=== PATIENT | male | born 1980 | race African-American/Black ===

== ENCOUNTER 2018-09-30 11:31 | Inpatient (IN) | payer OTHER ==
[2018-09-30 12:46] VITALS: BMI 23.4
--- NOTE | 2018-09-30 14:27 | HP ---
CIWA Score - Admission Criteria [facility]ASAS Guidelines: Admission for Medically Managed Detox: Requires at least one of the followin. CIWA greater than 12 2. Seizures within the past 24 hours 3. Delirium tremens within the past 24 hours 4. Hallucinations within the past 24 hours 5. Acute intervention needed for co occurring medical disorder 6. Acute intervention needed for co occurring psychiatric disorder 7. Severe withdrawal that cannot be handled at a lower level of care (continued vomiting, continued diarrhea, abnormal vital signs) requiring intravenous medication and/or fluids 8. Admission ROS [facility] Chief Complaint: rehab from alcohol Allergies/Adverse Reactions: Allergies Allergy/AdvReac Type Severity Reaction Status Date / Time No Known Drug Allergies Allergy Verified 09/30/18 12:34 pineapple Allergy Verified 09/30/18 12:34 History of Present Illness: Mr. Mcdaniel is a 38yo male with no PMH who presents for rehab from alcohol. He drank 2 pints daily and 5 beers since April. He began drinking at age 14. He denies hx of blackouts or seizures. He was in inpt rehab 3 months ago. He is currently in outpt rehab at [facility] and chose to present here. Pt reports smoking 4-5 joints daily and began using 15 years ago. He also reports use of crystal meth 1-2gm 3x week for a month by inhalation and intermittent MDMA use. Pt reports smoking 1 cigarette daily. 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 Pt denies JO, dizziness, chest pain, SOB, n/v/d, or weakness today. PMH: none meds: none allergies: NKDA, pineapple surgeries: none - Ebola screening Have you traveled outside of the country in the last 21 days: No (N) Have you had contact with anyone from an Ebola affected area: No Do you have a fever: No - Review of Systems Constitutional: No Symptoms Reported EENT: reports: No Symptoms Reported Respiratory: reports: No Symptoms reported Cardiac: reports: No Symptoms Reported GI: reports: No Symptoms Reported : reports: No Symptoms Reported Musculoskeletal: reports: No Symptoms Reported Integumentary: reports: No Symptoms Reported Neuro: reports: No Symptoms reported Endocrine: reports: No Symptoms Reported Hematology: reports: No Symptoms Reported Psychiatric: reports: Judgement Intact, Mood/Affect Appropiate, Orientated x3 Patient History - Patient Medical History Hx Hypertension: Yes (reports "sometimes") - Patient Surgical History Past Surgical History: No - Smoking Cessation Smoking history: Current every day smoker Aproximately how many cigarettes per day: 1 Initiated information on smoking cessation: Yes 'Breaking Loose' booklet given: 09/30/18 - Substances abused Ectasy Substance route: Oral Frequency: 1-2 times per week Amount used: 3 PILLS Age of first use: 24 Date of last use: 09/16/18 Alcohol Substance route: Oral Frequency: Daily Amount used: 2 pints, 5 beers Age of first use: 13 Date of last use: 09/29/18 Methamphetamine Substance route: Smoking Frequency: 3-6 times per week Amount used: 1-2 grams Age of first use: 37 Date of last use: 09/23/18 Other Other (specify): DARIAN Substance route: Oral Frequency: 1-2 times per week Amount used: 3 POINTS Age of first use: 35 Date of last use: 09/23/18 Marijuana/Hashish Substance route: Smoking Frequency: Daily Amount used: 4-5 joints Age of first use: 14 Date of last use: 09/30/18 Family Disease History - Family Disease History Family History: Unremarkable Admission Physical Exam BHS - Vital Signs Vital Signs: Vital Signs - 24 hr 09/30/18 12:32 Temperature 97.1 F L Pulse Rate 68 Respiratory 20 Rate Blood Pressure 138/83 - Physical General Appearance: Yes: No Apparent Distress HEENTM: Yes: Hearing grossly Normal, Normocephalic, RUPERT, Other (moist mucous membranes) Respiratory: Yes: Lungs Clear, No Respiratory Distress Neck: Yes: Within Normal Limits Cardiology: Yes: Regular Rhythm, Regular Rate Abdominal: Yes: Normal Bowel Sounds, Non Tender Back: Yes: Normal Inspection Musculoskeletal: Yes: full range of Motion Extremities: Yes: Normal Range of Motion Neurological: Yes: 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 NML intact, Fully Oriented, Alert, Motor Strength 5/5, Normal Mood/Affect Integumentary: Yes: Within Normal Limits - Diagnostic (1) Intermittent hypertension Current Visit: Yes Status: Acute (2) Methamphetamine use Current Visit: Yes Status: Chronic (3) History of methylenedioxymethamphetamine (MDMA) use Current Visit: Yes Status: Chronic (4) Cannabis use disorder, mild, abuse Current Visit: Yes Status: Chronic (5) Alcohol use disorder Current Visit: Yes Status: Chronic Breathalyzer - Breathalyzer Breathalyzer: 0 Urine Drug Screen - Test Device Lot number: [id number] Expiration date: 07/10/20 - Control Is test valid?: Yes - Results Drug screen NEGATIVE: No Urine drug screen results: THC-Marijuana Inpatient Rehab Admission - Rehab Decision to Admit Inpatient rehab admission?: Yes - Initial Determination Are CD services needed?: Yes Free of communicable disease: Yes Not in need of hospitalization: Yes - Rehab Admission Criteria Previous failed treatment: Yes Poor recovery environment: Yes Comorbidities: Yes Lacks judgement: No Patient is meeting Inpatient Rehab admission criteria:: Yes
[2018-09-30] MEDS ORDERED: hydrOXYzine PAMOATE 25 MG CAPSULE (FP) PO PRN (15:51)
[2018-09-30] MEDS ORDERED: guaiFENesin 200 MG/10 ML 10 ML UNIT-DOSE CUPS PO PRN (15:51)
[2018-09-30] MEDS ORDERED: P-EPHED 60MG/TRIPROLIDI 2.5MG TABLET PO PRN (15:51)
[2018-09-30] MEDS ORDERED: MENTHOL/PHENOL 1 EACH UD MM PRN (15:51)
[2018-09-30] MEDS ORDERED: MAG HYDROX/AL HYDROX/SIMETH 30 ML UNIT-DOSE CUP PO PRN (15:51)
[2018-09-30] MEDS ORDERED: MAGNESIUM CITRATE 300 ML BOTTLE PO PRN (15:51)
[2018-09-30] MEDS ORDERED: MAGNESIUM HYDROX 2400MG/30ML ORAL SUSPENSION 30 ML CUP PO PRN (15:51)
[2018-09-30] MEDS ORDERED: IBUPROFEN 400 MG TABLET (FP) PO PRN (15:51)
[2018-09-30] MEDS ORDERED: LOPERAMIDE HCL 2 MG CAPSULE PO PRN (15:51)
[2018-09-30] MEDS ORDERED: ACETAMINOPHEN 325 MG TABLET (FP) PO PRN (15:51)
--- NOTE | 2018-09-30 16:07 | PN ---
Teaching Attending Note Name of Resident: Shayla Ching ATTENDING PHYSICIAN STATEMENT I saw and evaluated the patient. I reviewed the resident's note and discussed the case with the resident. I agree with the resident's findings and plan as documented. SUBJECTIVE: this 38 years old male with alcohol,marijuana,crystal meth and ecstasy abused , seeking help OBJECTIVE: Vital Signs Temperature 97.1 F L 09/30/18 12:32 Pulse Rate 68 09/30/18 12:32 Respiratory Rate 20 09/30/18 12:32 Blood Pressure 138/83 09/30/18 12:32 O2 Sat by Pulse Oximetry (%) ASSESSMENT AND PLAN: this patient need inpatient rehab from alcohol,marijuana,barbara dust,ecstsy,
[2018-09-30] MEDS ORDERED: MELATONIN 5 MG TABLETS PO PRN (22:00)
[2018-09-30] MEDS: THIAMINE HCL 100 MG TABLET (FP) PO SCH (22:04)
[2018-10-01] MEDS: PRENATAL VITAMINS W/ FOLIC ACID TABLET (FP) PO SCH (10:19)
[2018-10-01] MEDS: NICOTINE 14 MG/24 HOURS TOPICAL PATCH TD SCH (10:23)
--- NOTE | 2018-10-01 11:41 | EKG ---
Test Reason : Blood Pressure : / mmHG Vent. Rate : 056 BPM Atrial Rate : 056 BPM P-R Int : 170 ms QRS Dur : 098 ms QT Int : 468 ms P-R-T Axes : 033 055 -01 degrees QTc Int : 451 ms SINUS BRADYCARDIA WITH SINUS ARRHYTHMIA OTHERWISE NORMAL ECG NO PREVIOUS ECGS AVAILABLE Confirmed by JAMES GIRALDO, VANESA ([id number]) on 10/01/2018 11:41:22 AM Referred By: Confirmed By:VANESA RAMIREZ MD
[2018-10-01 12:31] LABS: ALBUMIN 4.2 g/dl (3.4-5.0); BILIRUBIN,TOTAL 0.8 mg/dL (0.2-1); BLOOD UREA NITROGEN 15.9 mg/dL (7-18); CALCIUM 9.8 mg/dL (8.5-10.1); POTASSIUM 4.2 mmol/L (3.5-5.1); TOT PROT 7.5 g/dl (6.4-8.2)
[2018-10-01 13:22] LABS: EPI CELLS 9.4 /HPF (0-5/HPF); HYALINE CASTS 35 /lpf (0-8); URINE APPEARANCE CLEAR; URINE BACTERIA 17.6 /hpf (NEGATIVE); URINE BILIRUBIN NEGATIVE (NEGATIVE); URINE COLOR YELLOW; URINE GLUCOSE (UA) NEGATIVE (NEGATIVE); URINE KETONE NEGATIVE (NEGATIVE); URINE LEUK ESTERASE 1+ (NEGATIVE); URINE NITRITE NEGATIVE (NEGATIVE); URINE PROTEIN NEGATIVE (NEGATIVE); URINE RBC 1 /hpf (0-4); URINE WBC 12 /hpf (0-5)
[2018-10-01 13:27] LABS: HEMATOCRIT 45.5 % (35.4-49); HEMOGLOBIN 14.4 GM/dL (11.7-16.9); MCH 24.2 pg (25.7-33.7); MCHC 31.7 g/dl (32.0-35.9); MEAN CELL VOLUME 76.2 fl (80-96); MEAN PLT VOLUME 9.3 fl (7.5-11.1); PLATELET COUNT 323 K/MM3 (134-434); RBC 5.97 M/mm3 (4.00-5.60); RDW 15.2 % (11.9-15.9)
[2018-10-01] MEDS: THIAMINE HCL 100 MG TABLET (FP) PO SCH (21:29)
[2018-10-01] MEDS: TOLNAFTATE 1% CREAM 15 GM TUBE TP SCH (22:11)
[2018-10-02] MEDS: NICOTINE 14 MG/24 HOURS TOPICAL PATCH TD SCH (10:19)
[2018-10-02] MEDS: PRENATAL VITAMINS W/ FOLIC ACID TABLET (FP) PO SCH (10:19)
[2018-10-02] MEDS: TOLNAFTATE 1% CREAM 15 GM TUBE TP SCH ×2 (10:20→21:37)
[2018-10-02] MEDS: MELATONIN 5 MG TABLETS PO PRN (21:36)
[2018-10-02] MEDS: THIAMINE HCL 100 MG TABLET (FP) PO SCH (21:36)
[2018-10-03] MEDS: PRENATAL VITAMINS W/ FOLIC ACID TABLET (FP) PO SCH (10:41)
[2018-10-03] MEDS: TOLNAFTATE 1% CREAM 15 GM TUBE TP SCH ×2 (10:41→21:42)
[2018-10-03] MEDS: NICOTINE 14 MG/24 HOURS TOPICAL PATCH TD SCH (10:41)
[2018-10-03] MEDS: NICOTINE POLACRILEX 2 MG GUM BUC PRN (10:42)
[2018-10-03] MEDS: THIAMINE HCL 100 MG TABLET (FP) PO SCH (21:42)
[2018-10-03] MEDS: MELATONIN 5 MG TABLETS PO PRN (21:42)
[2018-10-04] MEDS: NICOTINE 14 MG/24 HOURS TOPICAL PATCH TD SCH (09:44)
[2018-10-04] MEDS: PRENATAL VITAMINS W/ FOLIC ACID TABLET (FP) PO SCH (09:44)
[2018-10-04] MEDS: TOLNAFTATE 1% CREAM 15 GM TUBE TP SCH ×2 (09:45→22:47)
[2018-10-04] MEDS: THIAMINE HCL 100 MG TABLET (FP) PO SCH (21:43)
[2018-10-04] MEDS: MELATONIN 5 MG TABLETS PO PRN (21:44)
[2018-10-05] MEDS ORDERED: PT OWN MED DRAWER 7, Y5N ONE (09:37)
[2018-10-05] MEDS: TOLNAFTATE 1% CREAM 15 GM TUBE TP SCH ×2 (10:08→21:27)
[2018-10-05] MEDS: PRENATAL VITAMINS W/ FOLIC ACID TABLET (FP) PO SCH (10:08)
[2018-10-05] MEDS: NICOTINE 14 MG/24 HOURS TOPICAL PATCH TD SCH (10:08)
[2018-10-05] MEDS: THIAMINE HCL 100 MG TABLET (FP) PO SCH (21:26)
[2018-10-05] MEDS: MELATONIN 5 MG TABLETS PO PRN (21:26)
[2018-10-06] MEDS: TOLNAFTATE 1% CREAM 15 GM TUBE TP SCH ×2 (10:12→21:26)
[2018-10-06] MEDS: PRENATAL VITAMINS W/ FOLIC ACID TABLET (FP) PO SCH (10:12)
[2018-10-06] MEDS: NICOTINE 14 MG/24 HOURS TOPICAL PATCH TD SCH (10:12)
[2018-10-06] MEDS: NICOTINE POLACRILEX 2 MG GUM BUC PRN ×2 (10:14→21:27)
[2018-10-06] MEDS: THIAMINE HCL 100 MG TABLET (FP) PO SCH (21:26)
[2018-10-06] MEDS: MELATONIN 5 MG TABLETS PO PRN (21:27)
[2018-10-07] MEDS: PRENATAL VITAMINS W/ FOLIC ACID TABLET (FP) PO SCH (10:07)
[2018-10-07] MEDS: NICOTINE 14 MG/24 HOURS TOPICAL PATCH TD SCH (10:07)
[2018-10-07] MEDS: TOLNAFTATE 1% CREAM 15 GM TUBE TP SCH ×2 (10:07→21:18)
[2018-10-07] MEDS: NICOTINE POLACRILEX 2 MG GUM BUC PRN ×2 (10:08→21:17)
[2018-10-07] MEDS: MELATONIN 5 MG TABLETS PO PRN (21:18)
[2018-10-07] MEDS: THIAMINE HCL 100 MG TABLET (FP) PO SCH (21:18)
[2018-10-08] MEDS: TOLNAFTATE 1% CREAM 15 GM TUBE TP SCH ×2 (10:08→22:05)
[2018-10-08] MEDS: NICOTINE POLACRILEX 2 MG GUM BUC PRN ×2 (10:08→21:38)
[2018-10-08] MEDS: PRENATAL VITAMINS W/ FOLIC ACID TABLET (FP) PO SCH (10:08)
[2018-10-08] MEDS: NICOTINE 14 MG/24 HOURS TOPICAL PATCH TD SCH (10:08)
[2018-10-08] MEDS: MELATONIN 5 MG TABLETS PO PRN (21:37)
[2018-10-08] MEDS: THIAMINE HCL 100 MG TABLET (FP) PO SCH (21:37)
[2018-10-09] MEDS ORDERED: PT OWN MED DRAWER 7, Y5N ONE (09:32)
[2018-10-09] MEDS: PRENATAL VITAMINS W/ FOLIC ACID TABLET (FP) PO SCH (09:35)
[2018-10-09] MEDS: NICOTINE 14 MG/24 HOURS TOPICAL PATCH TD SCH (09:35)
[2018-10-09] MEDS: NICOTINE POLACRILEX 2 MG GUM BUC PRN (09:36)
[2018-10-09] MEDS: TOLNAFTATE 1% CREAM 15 GM TUBE TP SCH ×2 (09:36→21:20)
--- NOTE | 2018-10-09 09:49 | PN ---
[facility] Progress Note Note: PATIENT C/O RASH/IRRITATION TO LOWER ABDOMINAL AND GROIN AREA DUE TO SHAVING. PATIENT DENIES ANY OPEN AREAS AND SURROUNDING REDNESS. Laboratory Tests 10/01/18 10/01/18 10/01/18 08:25 08:25 08:25 WBC 4.0 RBC 5.97 H Hgb 14.4 Hct 45.5 MCV 76.2 L MCH 24.2 L MCHC 31.7 L RDW 15.2 Plt Count 323 MPV 9.3 Sodium 142 Potassium 4.2 Chloride 106 Carbon Dioxide 27 Anion Gap 9 BUN 15.9 Creatinine 1.0 Est GFR (CKD-EPI)AfAm 111.73 Est GFR (CKD-EPI)NonAf 96.40 Random Glucose 87 Calcium 9.8 Total Bilirubin 0.8 AST 17 ALT 26 Alkaline Phosphatase 76 Total Protein 7.5 Albumin 4.2 Urine Color Urine Appearance Urine pH Ur Specific [place] Urine Protein Urine Glucose (UA) Urine Ketones Urine Blood Urine Nitrite Urine Bilirubin Urine Urobilinogen Ur Leukocyte Esterase Urine WBC (Auto) Urine RBC (Auto) Urine Casts (Auto) U Epithel Cells (Auto) U Sm Round Cell (Auto) Urine Bacteria (Auto) RPR Titer Nonreactive TB (QFT) Incubation TB Test (QFT) Nil TB Test (QFT) Mitogen TB Test (QFT) Antigen TB Test (QFT) TB Positive Criteria 10/01/18 10/01/18 08:25 09:00 WBC RBC Hgb Hct MCV MCH MCHC RDW Plt Count MPV Sodium Potassium Chloride Carbon Dioxide Anion Gap BUN Creatinine Est GFR (CKD-EPI)AfAm Est GFR (CKD-EPI)NonAf Random Glucose Calcium Total Bilirubin AST ALT Alkaline Phosphatase Total Protein Albumin Urine Color Yellow Urine Appearance Clear Urine pH 6.0 Ur Specific [place] 1.031 Urine Protein Negative Urine Glucose (UA) Negative Urine Ketones Negative Urine Blood Negative Urine Nitrite Negative Urine Bilirubin Negative Urine Urobilinogen 1.0 Ur Leukocyte Esterase 1+ H Urine WBC (Auto) 12 Urine RBC (Auto) 1 Urine Casts (Auto) 35 U Epithel Cells (Auto) 9.4 U Sm Round Cell (Auto) Rbc Urine Bacteria (Auto) 17.6 RPR Titer TB (QFT) Incubation TB Test (QFT) Nil 0.11 TB Test (QFT) Mitogen >10.00 TB Test (QFT) Antigen 0.11 TB Test (QFT) Negative TB Positive Criteria Vital Signs (72 hours) 10/07/18 10/08/18 10/08/18 06:37 00:30 03:30 Temperature 97.8 F Pulse Rate 72 Respiratory 18 18 18 Rate Blood Pressure 138/64 10/08/18 10/08/18 10/09/18 06:30 06:49 00:30 Temperature 97.8 F Pulse Rate 66 Respiratory 18 18 20 Rate Blood Pressure 113/73 10/09/18 10/09/18 03:30 06:56 Temperature 97.6 F Pulse Rate 50 L Respiratory 18 18 Rate Blood Pressure 132/78 A/P: GROIN RASH DUE TO SHAVING WILL ORDER BACITRACIN TO AA BID MONITOR CLINICALLY
[2018-10-09] MEDS: BACITRACIN 15 GM TUBE TOPICAL OINTMENT TP SCH ×2 (10:28→21:20)
[2018-10-09] MEDS: THIAMINE HCL 100 MG TABLET (FP) PO SCH (21:20)
[2018-10-09] MEDS: MELATONIN 5 MG TABLETS PO PRN (21:20)
[2018-10-10] MEDS: BACITRACIN 15 GM TUBE TOPICAL OINTMENT TP SCH ×2 (10:08→21:41)
[2018-10-10] MEDS: PRENATAL VITAMINS W/ FOLIC ACID TABLET (FP) PO SCH (10:08)
[2018-10-10] MEDS: NICOTINE 14 MG/24 HOURS TOPICAL PATCH TD SCH (10:08)
[2018-10-10] MEDS: TOLNAFTATE 1% CREAM 15 GM TUBE TP SCH ×2 (10:08→21:41)
--- NOTE | 2018-10-10 11:52 | CONSULT ---
[facility] Psychiatric Consult - Data Date of interview: 10/10/18 Admission source: [facility] Identifying data: First visit to [facility] and direct admission to [address] for this 38 y/o AA male, mandated by his mail officer for rehabiltative care to address substance use disorders (MDMA, cannabis, alcohol, phencyclidine) co-morbid with MDD + Anxiety Disorder. Interviewed at [facility]. Patient is single, a father of six, homeless, unemployed and receiving food stamps. Substance Abuse History: Discussed in this interview. Mr Mcdaniel confirms this segment of current [facility] report on his substance abuse profile as accurate : Smoking history: Current every day smoker. Aproximately how many cigarettes per day: 1. Initiated information on smoking cessation: Yes. 'Breaking Loose' booklet given: 09/30/18. - Substances abused. Ectasy. Substance route: Oral. Frequency: 1-2 times per week. Amount used: 3 PILLS. Age of first use: 24. Date of last use: 09/16/18. Alcohol. Substance route: Oral. Frequency : Daily. Amount used: 2 pints, 5 beers. Age of first use: 13. Date of last use: 09/29/18. Methamphetamine. Substance route: Smoking. Frequency: 3-6 times per week. Amount used: 1-2 grams. Age of first use: 37. Date of last use: 09/23/18. Other. Other (specify): DARIAN. Substance route: Oral. Frequency: 1-2 times per week. Amount used: 3 POINTS. Age of first use: 35. Date of last use: 09/23/18. Marijuana/Hashish. Substance route: Smoking. Frequency: Daily. Amount used: 4-5 joints. Age of first use: 14. Date of last use: 09/30/18 Medical History: Medical profile is remarkable for hypertension. Psychiatric History: No reported history of psychiatric hospitalizations. Patient states that he was diagnosed at [facility] with MDD ( while in detoxification treatment) in 2018. Mr Mcdaniel did not follow with referral for psychiatric OPD care as recommended. Not on psychotropic medications. He is, however, followed at [facility]. Patient admits to being impulsive (intermittent explosive outbursts : punching prater when angry) but he denies prior history of suicide attempts. Physical/Sexual Abuse/Trauma History: Patient denies history of abuse. Reports mood dysregulation from exposure to life adverse events ( of his daughter, multiple deaths in the family, serious illness of friends, strains in interpersonal relationships, homelessness, history of incarceration, being on parole for next five years, lack of vocational skills, chronic unemployment, financial difficulties, chronic additions). Additional Comment: Urine drug screen results: THC-Marijuana. Noted. Mental Status Exam - Mental Status Exam Alert and Oriented to: Time, Place, Person Cognitive Function: Good Patient Appearance: Well Groomed (tattoos on neck, chest, upper extremities) Mood: Nervous, Anxious (dysphoric) Affect: Mood Congruent, Constricted Patient Behavior: Appropriate, Cooperative Speech Pattern: Clear Voice Loudness: Normal Thought Process: Goal Oriented Thought Disorder: Not Present Hallucinations: Denies Suicidal Ideation: Denies Homicidal Ideation: Denies Insight/Judgement: Poor Sleep: Poorly, Difficulty falling asleep Appetite: Good Muscle strength/Tone: Normal Gait/Station: Normal Psychiatric Findings - Problem List ([place] 1, 2,3) (1) Alcohol use disorder Current Visit: Yes Status: Chronic (2) Cannabis use disorder, mild, abuse Current Visit: Yes Status: Chronic (3) History of methylenedioxymethamphetamine (MDMA) use Current Visit: Yes Status: Chronic (4) Substance induced mood disorder Current Visit: Yes Status: Chronic (5) Insomnia Current Visit: Yes Status: Chronic - Initial Treatment Plan Initial Treatment Plan: Psychoeducation. Sleep hygiene. Support. Motivational counseling. AA meetings. Groups. Patient remains ambivalent about treatment with antidepressant (SSRI) medications but he agrees to take seroquel 50 mg po hs (and escalate dose later, if good tolerability + response). Side effects/ benefits discussed with patient. Mr Mcdaniel gave his consent (verbal) to MD. Man.
[2018-10-10] MEDS: THIAMINE HCL 100 MG TABLET (FP) PO SCH (21:41)
[2018-10-10] MEDS: QUEtiapine FUMARATE 50 MG TABLET PO SCH (21:41)
[2018-10-10] MEDS: NICOTINE POLACRILEX 2 MG GUM BUC PRN (21:44)
[2018-10-11] MEDS: PRENATAL VITAMINS W/ FOLIC ACID TABLET (FP) PO SCH (10:28)
[2018-10-11] MEDS: BACITRACIN 15 GM TUBE TOPICAL OINTMENT TP SCH ×2 (10:29→21:28)
[2018-10-11] MEDS: NICOTINE 14 MG/24 HOURS TOPICAL PATCH TD SCH (10:29)
[2018-10-11] MEDS: TOLNAFTATE 1% CREAM 15 GM TUBE TP SCH ×2 (10:29→21:28)
[2018-10-11] MEDS: NICOTINE POLACRILEX 2 MG GUM BUC PRN (10:29)
[2018-10-11] MEDS: THIAMINE HCL 100 MG TABLET (FP) PO SCH (21:27)
[2018-10-11] MEDS: QUEtiapine FUMARATE 50 MG TABLET PO SCH (21:27)
[2018-10-12] MEDS: PRENATAL VITAMINS W/ FOLIC ACID TABLET (FP) PO SCH (10:28)
[2018-10-12] MEDS: TOLNAFTATE 1% CREAM 15 GM TUBE TP SCH ×2 (10:29→21:19)
[2018-10-12] MEDS: BACITRACIN 15 GM TUBE TOPICAL OINTMENT TP SCH ×2 (10:29→21:19)
[2018-10-12] MEDS: NICOTINE 14 MG/24 HOURS TOPICAL PATCH TD SCH (10:29)
[2018-10-12] MEDS: NICOTINE POLACRILEX 2 MG GUM BUC PRN ×2 (10:29→21:19)
[2018-10-12] MEDS: THIAMINE HCL 100 MG TABLET (FP) PO SCH (21:19)
[2018-10-12] MEDS: QUEtiapine FUMARATE 50 MG TABLET PO SCH (21:19)
[2018-10-13] MEDS: PRENATAL VITAMINS W/ FOLIC ACID TABLET (FP) PO SCH (09:52)
[2018-10-13] MEDS: NICOTINE 14 MG/24 HOURS TOPICAL PATCH TD SCH (09:52)
[2018-10-13] MEDS: BACITRACIN 15 GM TUBE TOPICAL OINTMENT TP SCH ×2 (09:52→21:28)
[2018-10-13] MEDS: NICOTINE POLACRILEX 2 MG GUM BUC PRN ×2 (09:52→21:28)
[2018-10-13] MEDS: TOLNAFTATE 1% CREAM 15 GM TUBE TP SCH ×2 (09:52→21:44)
[2018-10-13] MEDS: THIAMINE HCL 100 MG TABLET (FP) PO SCH (21:27)
[2018-10-13] MEDS: MELATONIN 5 MG TABLETS PO PRN (21:28)
[2018-10-13] MEDS: QUEtiapine FUMARATE 50 MG TABLET PO SCH (21:28)
[2018-10-14] MEDS: PRENATAL VITAMINS W/ FOLIC ACID TABLET (FP) PO SCH (10:15)
[2018-10-14] MEDS: BACITRACIN 15 GM TUBE TOPICAL OINTMENT TP SCH ×2 (10:16→21:36)
[2018-10-14] MEDS: NICOTINE POLACRILEX 2 MG GUM BUC PRN (10:17)
[2018-10-14] MEDS: TOLNAFTATE 1% CREAM 15 GM TUBE TP SCH ×2 (10:18→21:36)
[2018-10-14] MEDS: NICOTINE 14 MG/24 HOURS TOPICAL PATCH TD SCH (10:18)
[2018-10-14] MEDS ORDERED: PT OWN MED DRAWER 7, Y5N ONE (10:18)
[2018-10-14] MEDS: THIAMINE HCL 100 MG TABLET (FP) PO SCH (21:35)
[2018-10-14] MEDS: MELATONIN 5 MG TABLETS PO PRN (21:35)
[2018-10-14] MEDS: QUEtiapine FUMARATE 50 MG TABLET PO SCH (21:35)
[2018-10-15] MEDS: TOLNAFTATE 1% CREAM 15 GM TUBE TP SCH ×2 (10:14→21:10)
[2018-10-15] MEDS: PRENATAL VITAMINS W/ FOLIC ACID TABLET (FP) PO SCH (10:14)
[2018-10-15] MEDS: NICOTINE 14 MG/24 HOURS TOPICAL PATCH TD SCH (10:14)
[2018-10-15] MEDS: BACITRACIN 15 GM TUBE TOPICAL OINTMENT TP SCH ×2 (10:14→21:10)
[2018-10-15] MEDS ORDERED: PT OWN MED DRAWER 7, Y5N ONE (20:28)
[2018-10-15] MEDS: QUEtiapine FUMARATE 50 MG TABLET PO SCH (21:10)
[2018-10-15] MEDS: THIAMINE HCL 100 MG TABLET (FP) PO SCH (21:10)
[2018-10-16] MEDS: PRENATAL VITAMINS W/ FOLIC ACID TABLET (FP) PO SCH (10:08)
[2018-10-16] MEDS: NICOTINE 14 MG/24 HOURS TOPICAL PATCH TD SCH (10:08)
[2018-10-16] MEDS ORDERED: PT OWN MED DRAWER 7, Y5N ONE (10:09)
[2018-10-16] MEDS: BACITRACIN 15 GM TUBE TOPICAL OINTMENT TP SCH ×2 (10:09→21:53)
[2018-10-16] MEDS: TOLNAFTATE 1% CREAM 15 GM TUBE TP SCH ×2 (10:09→21:53)
[2018-10-16] MEDS: NICOTINE POLACRILEX 2 MG GUM BUC PRN (10:10)
[2018-10-16] MEDS: QUEtiapine FUMARATE 50 MG TABLET PO SCH (21:53)
[2018-10-16] MEDS: THIAMINE HCL 100 MG TABLET (FP) PO SCH (21:53)
[2018-10-16] MEDS: MELATONIN 5 MG TABLETS PO PRN (21:54)
[2018-10-17] MEDS: TOLNAFTATE 1% CREAM 15 GM TUBE TP SCH ×2 (10:08→21:33)
[2018-10-17] MEDS: BACITRACIN 15 GM TUBE TOPICAL OINTMENT TP SCH ×2 (10:08→21:33)
[2018-10-17] MEDS: PRENATAL VITAMINS W/ FOLIC ACID TABLET (FP) PO SCH (10:08)
[2018-10-17] MEDS: NICOTINE POLACRILEX 2 MG GUM BUC PRN (10:09)
[2018-10-17] MEDS: NICOTINE 14 MG/24 HOURS TOPICAL PATCH TD SCH (10:09)
[2018-10-17] MEDS: MELATONIN 5 MG TABLETS PO PRN (21:33)
[2018-10-17] MEDS: QUEtiapine FUMARATE 50 MG TABLET PO SCH (21:33)
[2018-10-17] MEDS: THIAMINE HCL 100 MG TABLET (FP) PO SCH (21:33)
[2018-10-18] MEDS: PRENATAL VITAMINS W/ FOLIC ACID TABLET (FP) PO SCH (09:35)
[2018-10-18] MEDS: NICOTINE 14 MG/24 HOURS TOPICAL PATCH TD SCH (09:35)
[2018-10-18] MEDS: TOLNAFTATE 1% CREAM 15 GM TUBE TP SCH ×2 (09:35→21:10)
[2018-10-18] MEDS: BACITRACIN 15 GM TUBE TOPICAL OINTMENT TP SCH ×2 (09:35→21:10)
[2018-10-18] MEDS: QUEtiapine FUMARATE 50 MG TABLET PO SCH (21:10)
[2018-10-18] MEDS: MELATONIN 5 MG TABLETS PO PRN (21:10)
[2018-10-18] MEDS: THIAMINE HCL 100 MG TABLET (FP) PO SCH (21:10)
[2018-10-19] MEDS: PRENATAL VITAMINS W/ FOLIC ACID TABLET (FP) PO SCH (10:22)
[2018-10-19] MEDS: BACITRACIN 15 GM TUBE TOPICAL OINTMENT TP SCH ×2 (10:23→21:18)
[2018-10-19] MEDS: TOLNAFTATE 1% CREAM 15 GM TUBE TP SCH ×2 (10:23→22:05)
[2018-10-19] MEDS: NICOTINE POLACRILEX 2 MG GUM BUC PRN (10:23)
[2018-10-19] MEDS: NICOTINE 14 MG/24 HOURS TOPICAL PATCH TD SCH (10:23)
[2018-10-19] MEDS ORDERED: PT OWN MED DRAWER 7, Y5N ONE (19:14)
[2018-10-19] MEDS: QUEtiapine FUMARATE 50 MG TABLET PO SCH (21:19)
[2018-10-19] MEDS: THIAMINE HCL 100 MG TABLET (FP) PO SCH (21:19)
[2018-10-19] MEDS: MELATONIN 5 MG TABLETS PO PRN (21:19)
[2018-10-20] MEDS: PRENATAL VITAMINS W/ FOLIC ACID TABLET (FP) PO SCH (10:23)
[2018-10-20] MEDS: BACITRACIN 15 GM TUBE TOPICAL OINTMENT TP SCH ×2 (10:23→21:19)
[2018-10-20] MEDS: NICOTINE 14 MG/24 HOURS TOPICAL PATCH TD SCH (10:24)
[2018-10-20] MEDS: NICOTINE POLACRILEX 2 MG GUM BUC PRN (10:25)
[2018-10-20] MEDS: TOLNAFTATE 1% CREAM 15 GM TUBE TP SCH ×2 (10:42→22:33)
[2018-10-20] MEDS: THIAMINE HCL 100 MG TABLET (FP) PO SCH (21:18)
[2018-10-20] MEDS: MELATONIN 5 MG TABLETS PO PRN (21:19)
[2018-10-20] MEDS: QUEtiapine FUMARATE 50 MG TABLET PO SCH (21:19)
[2018-10-21] MEDS ORDERED: PT OWN MED DRAWER 7, Y5N ONE (08:42)
[2018-10-21] MEDS ORDERED: NICOTINE POLACRILEX 4 MG GUM BUC ONE (08:42)
[2018-10-21] MEDS: NICOTINE 14 MG/24 HOURS TOPICAL PATCH TD SCH (10:20)
[2018-10-21] MEDS: PRENATAL VITAMINS W/ FOLIC ACID TABLET (FP) PO SCH (10:20)
[2018-10-21] MEDS: BACITRACIN 15 GM TUBE TOPICAL OINTMENT TP SCH ×2 (10:20→21:50)
[2018-10-21] MEDS: TOLNAFTATE 1% CREAM 15 GM TUBE TP SCH ×2 (10:21→21:56)
[2018-10-21] MEDS: QUEtiapine FUMARATE 50 MG TABLET PO SCH (21:50)
[2018-10-21] MEDS: THIAMINE HCL 100 MG TABLET (FP) PO SCH (21:50)
[2018-10-21] MEDS: MELATONIN 5 MG TABLETS PO PRN (21:50)
[2018-10-21] MEDS: CHLORHEXIDINE GLUCONATE 118 ML MOUTHWASH MM SCH (21:50)
[2018-10-22] MEDS: PRENATAL VITAMINS W/ FOLIC ACID TABLET (FP) PO SCH (10:15)
[2018-10-22] MEDS: NICOTINE 14 MG/24 HOURS TOPICAL PATCH TD SCH (10:15)
[2018-10-22] MEDS: BACITRACIN 15 GM TUBE TOPICAL OINTMENT TP SCH ×2 (10:16→21:16)
[2018-10-22] MEDS: TOLNAFTATE 1% CREAM 15 GM TUBE TP SCH ×2 (10:16→21:41)
[2018-10-22] MEDS: CHLORHEXIDINE GLUCONATE 118 ML MOUTHWASH MM SCH ×2 (10:16→21:17)
[2018-10-22] MEDS: NICOTINE POLACRILEX 2 MG GUM BUC PRN (10:17)
[2018-10-22] MEDS ORDERED: PT OWN MED DRAWER 7, Y5N ONE ×2 (10:41→21:17)
[2018-10-22] MEDS: QUEtiapine FUMARATE 50 MG TABLET PO SCH (21:16)
[2018-10-22] MEDS: THIAMINE HCL 100 MG TABLET (FP) PO SCH (21:17)
[2018-10-22] MEDS: MELATONIN 5 MG TABLETS PO PRN (21:17)
[2018-10-23] MEDS ORDERED: PT OWN MED DRAWER 7, Y5N ONE ×2 (08:18→08:31)
[2018-10-23] MEDS ORDERED: NICOTINE POLACRILEX 2 MG GUM BUC ONE (08:31)
[2018-10-23] MEDS: CHLORHEXIDINE GLUCONATE 118 ML MOUTHWASH MM SCH ×2 (10:23→21:40)
[2018-10-23] MEDS: PRENATAL VITAMINS W/ FOLIC ACID TABLET (FP) PO SCH (10:23)
[2018-10-23] MEDS: NICOTINE POLACRILEX 2 MG GUM BUC PRN (10:24)
[2018-10-23] MEDS: TOLNAFTATE 1% CREAM 15 GM TUBE TP SCH ×2 (10:25→21:40)
[2018-10-23] MEDS: BACITRACIN 15 GM TUBE TOPICAL OINTMENT TP SCH ×2 (10:26→21:40)
[2018-10-23] MEDS: NICOTINE 14 MG/24 HOURS TOPICAL PATCH TD SCH (10:26)
[2018-10-23] MEDS: MELATONIN 5 MG TABLETS PO PRN (21:39)
[2018-10-23] MEDS: QUEtiapine FUMARATE 50 MG TABLET PO SCH (21:40)
[2018-10-23] MEDS: THIAMINE HCL 100 MG TABLET (FP) PO SCH (21:40)
[2018-10-24 06:25] VITALS: TEMP 97.9
[2018-10-24] MEDS: NICOTINE POLACRILEX 2 MG GUM BUC PRN (09:52)
[2018-10-24] MEDS: NICOTINE 14 MG/24 HOURS TOPICAL PATCH TD SCH (09:52)
[2018-10-24] MEDS: CHLORHEXIDINE GLUCONATE 118 ML MOUTHWASH MM SCH ×2 (09:52→21:09)
[2018-10-24] MEDS: PRENATAL VITAMINS W/ FOLIC ACID TABLET (FP) PO SCH (09:52)
[2018-10-24] MEDS: BACITRACIN 15 GM TUBE TOPICAL OINTMENT TP SCH ×2 (10:35→21:09)
[2018-10-24] MEDS: TOLNAFTATE 1% CREAM 15 GM TUBE TP SCH ×2 (10:35→21:10)
[2018-10-24] MEDS: THIAMINE HCL 100 MG TABLET (FP) PO SCH (21:09)
[2018-10-24] MEDS: MELATONIN 5 MG TABLETS PO PRN (21:09)
[2018-10-24] MEDS: QUEtiapine FUMARATE 50 MG TABLET PO SCH (21:09)
[2018-10-25] MEDS: NICOTINE 14 MG/24 HOURS TOPICAL PATCH TD SCH (10:16)
[2018-10-25] MEDS: PRENATAL VITAMINS W/ FOLIC ACID TABLET (FP) PO SCH (10:16)
[2018-10-25] MEDS: CHLORHEXIDINE GLUCONATE 118 ML MOUTHWASH MM SCH ×2 (10:16→21:42)
[2018-10-25] MEDS: BACITRACIN 15 GM TUBE TOPICAL OINTMENT TP SCH ×2 (10:16→21:42)
[2018-10-25] MEDS: NICOTINE POLACRILEX 2 MG GUM BUC PRN (10:17)
[2018-10-25] MEDS: TOLNAFTATE 1% CREAM 15 GM TUBE TP SCH ×2 (10:18→21:55)
[2018-10-25] MEDS: THIAMINE HCL 100 MG TABLET (FP) PO SCH (21:42)
[2018-10-25] MEDS: MELATONIN 5 MG TABLETS PO PRN (21:42)
[2018-10-25] MEDS: QUEtiapine FUMARATE 50 MG TABLET PO SCH (21:55)
[2018-10-26 06:57] VITALS: BP 133/72; PULSE 55
[2018-10-26] MEDS: NICOTINE 14 MG/24 HOURS TOPICAL PATCH TD SCH (09:50)
[2018-10-26] MEDS: BACITRACIN 15 GM TUBE TOPICAL OINTMENT TP SCH ×2 (09:50→21:35)
[2018-10-26] MEDS: PRENATAL VITAMINS W/ FOLIC ACID TABLET (FP) PO SCH (09:50)
[2018-10-26] MEDS: CHLORHEXIDINE GLUCONATE 118 ML MOUTHWASH MM SCH ×2 (09:50→21:35)
[2018-10-26] MEDS: TOLNAFTATE 1% CREAM 15 GM TUBE TP SCH ×2 (10:05→21:41)
[2018-10-26] MEDS: MELATONIN 5 MG TABLETS PO PRN (21:35)
[2018-10-26] MEDS: THIAMINE HCL 100 MG TABLET (FP) PO SCH (21:35)
[2018-10-26] MEDS: QUEtiapine FUMARATE 50 MG TABLET PO SCH (21:35)
[2018-10-27] MEDS ORDERED: PT OWN MED DRAWER 7, Y5N ONE (08:33)
[2018-10-27] MEDS: PRENATAL VITAMINS W/ FOLIC ACID TABLET (FP) PO SCH (12:08)
[2018-10-27] MEDS: CHLORHEXIDINE GLUCONATE 118 ML MOUTHWASH MM SCH ×2 (12:09→21:53)
[2018-10-27] MEDS: NICOTINE 14 MG/24 HOURS TOPICAL PATCH TD SCH (12:09)
[2018-10-27] MEDS: BACITRACIN 15 GM TUBE TOPICAL OINTMENT TP SCH ×2 (12:09→21:53)
[2018-10-27] MEDS: TOLNAFTATE 1% CREAM 15 GM TUBE TP SCH ×2 (12:09→21:53)
[2018-10-27] MEDS: NICOTINE POLACRILEX 2 MG GUM BUC PRN (12:11)
--- NOTE | 2018-10-27 15:02 | PN ---
[facility] Progress Note Note: Patient is scheduled for discharge tomorrow. Script for 30 days supply of Seroquel 50 mg/hs will be electronically transmitted to [facility] at [address] [place], [place] [id number]
[2018-10-27] MEDS: THIAMINE HCL 100 MG TABLET (FP) PO SCH (21:53)
[2018-10-27] MEDS: QUEtiapine FUMARATE 50 MG TABLET PO SCH (21:53)
[2018-10-27] MEDS: MELATONIN 5 MG TABLETS PO PRN (21:53)
[2018-10-28] MEDS ORDERED: PT OWN MED DRAWER 7, Y5N ONE (08:40)
== END 2018-10-28 09:10 | disposition home or self-care (01) | DRG 772 ==
LOC: YASAS 11:31 → Y3W 15:52
PROVIDERS: ADMIT Neuromusculoskeletal Medicine & OMM; ATTEND Neuromusculoskeletal Medicine & OMM
PROC: HZ42ZZZ Group Counseling for Substance Abuse Treatment, Cognitive-Behavioral (ICD-10-PCS; principal; 2018-09-30)
DX: F10.20 Alcohol dependence, uncomplicated (principal); F12.20 Cannabis dependence, uncomplicated; F16.10 Hallucinogen abuse, uncomplicated; F19.24 Other psychoactive substance dependence with psychoactive substance-induced mood disorder; I10 Essential (primary) hypertension; G47.00 Insomnia, unspecified; B35.6 Tinea cruris; Z72.0 Tobacco use
CPT/HCPCS: 36415; 80053; 81003; 85027; 86480; 86593; 93005; 93010

== ENCOUNTER 2020-01-01 21:06 | Inpatient (IN) | payer OTHER ==
[2020-01-01 21:58] VITALS: BMI 22.1
[2020-01-02] MEDS ORDERED: MAGNESIUM HYDROX 2400MG/30ML ORAL SUSPENSION 30 ML CUP PO PRN (00:27)
[2020-01-02] MEDS ORDERED: guaiFENesin 200 MG/10 ML 10 ML UNIT-DOSE CUPS PO PRN (00:27)
[2020-01-02] MEDS ORDERED: MAGNESIUM CITRATE 300 ML BOTTLE PO PRN (00:27)
[2020-01-02] MEDS ORDERED: MAG HYDROX/AL HYDROX/SIMETH 30 ML UNIT-DOSE CUP PO PRN (00:27)
[2020-01-02] MEDS ORDERED: LOPERAMIDE HCL 2 MG CAPSULE PO PRN (00:27)
[2020-01-02] MEDS ORDERED: IBUPROFEN 400 MG TABLET (FP) PO PRN (00:27)
[2020-01-02] MEDS ORDERED: P-EPHED 60MG/TRIPROLIDI 2.5MG TABLET PO PRN (00:27)
[2020-01-02] MEDS ORDERED: TUBERCULIN PPD 5 TU/0.1ML VIAL ID ONE (00:41)
[2020-01-02] MEDS ORDERED: MASKS NR ONE (06:28)
[2020-01-02] MEDS: PRENATAL VITAMINS W/ FOLIC ACID TABLET (FP) PO SCH (10:12)
[2020-01-02 12:31] LABS: HEMATOCRIT 38.8 % (35.4-49); HEMOGLOBIN 12.3 GM/dL (11.7-16.9); MCH 23.4 pg (25.7-33.7); MCHC 31.7 g/dl (32.0-35.9); MEAN CELL VOLUME 73.8 fl (80-96); MEAN PLT VOLUME 8.5 fl (7.5-11.1); PLATELET COUNT 469 K/MM3 (134-434); RBC 5.26 M/mm3 (4.00-5.60); RDW 16.2 % (11.9-15.9); WHITE BLOOD COUNT 4.3 K/mm3 (4.0-10.0)
[2020-01-02 12:48] LABS: POTASSIUM 4.2 mmol/L (3.5-5.1)
[2020-01-02 12:59] LABS: CREATININE 0.9 mg/dL (0.55-1.3)
[2020-01-02 13:01] LABS: ALBUMIN 3.5 g/dl (3.4-5.0); BILIRUBIN,TOTAL 0.3 mg/dL (0.2-1); BLOOD UREA NITROGEN 16.8 mg/dL (7-18); CALCIUM 8.7 mg/dL (8.5-10.1)
[2020-01-02] MEDS: THIAMINE HCL 100 MG TABLET (FP) PO SCH (21:50)
[2020-01-02] MEDS: MELATONIN 5 MG TABLETS PO SCH (22:10)
[2020-01-03] MEDS: PRENATAL VITAMINS W/ FOLIC ACID TABLET (FP) PO SCH (09:44)
[2020-01-03] MEDS ORDERED: PENICILLIN G BENZATHINE 2,400,000 UNIT/4 ML PFS IM ONE (11:00)
[2020-01-03] MEDS: ACETAMINOPHEN 325 MG TABLET (FP) PO PRN (18:00)
[2020-01-03] MEDS: MELATONIN 5 MG TABLETS PO SCH (21:06)
[2020-01-03] MEDS: hydrOXYzine PAMOATE 25 MG CAPSULE (FP) PO PRN (21:06)
[2020-01-03] MEDS: THIAMINE HCL 100 MG TABLET (FP) PO SCH (21:06)
[2020-01-04] MEDS: PRENATAL VITAMINS W/ FOLIC ACID TABLET (FP) PO SCH (09:25)
[2020-01-04] MEDS ORDERED: diphenhydrAMINE HCL 25 MG CAPSULE (FP) PO PRN (13:47)
[2020-01-04] MEDS: COLLOIDAL OATMEAL 1 BAR EACH TP PRN (14:09)
[2020-01-04] MEDS: MINERAL OIL/PETROLAT/WATER TOPICAL CREAM 113 GM JAR TP SCH (16:13)
[2020-01-04] MEDS: diphenhydrAMINE HCL 25 MG CAPSULE (FP) PO PRN (18:26)
[2020-01-04] MEDS: QUEtiapine FUMARATE 50 MG TABLET PO SCH (21:56)
[2020-01-04] MEDS ORDERED: MASKS NR ONE (21:56)
[2020-01-04] MEDS: THIAMINE HCL 100 MG TABLET (FP) PO SCH (21:56)
[2020-01-04] MEDS: MELATONIN 5 MG TABLETS PO SCH (21:57)
[2020-01-05] MEDS: PRENATAL VITAMINS W/ FOLIC ACID TABLET (FP) PO SCH (10:01)
[2020-01-05] MEDS: MINERAL OIL/PETROLAT/WATER TOPICAL CREAM 113 GM JAR TP SCH (10:01)
[2020-01-05] MEDS: THIAMINE HCL 100 MG TABLET (FP) PO SCH (21:07)
[2020-01-05] MEDS: diphenhydrAMINE HCL 25 MG CAPSULE (FP) PO PRN (21:08)
[2020-01-05] MEDS: MELATONIN 5 MG TABLETS PO SCH (21:08)
[2020-01-05] MEDS: QUEtiapine FUMARATE 50 MG TABLET PO SCH (21:08)
[2020-01-06] MEDS: PRENATAL VITAMINS W/ FOLIC ACID TABLET (FP) PO SCH (09:33)
[2020-01-06] MEDS: MINERAL OIL/PETROLAT/WATER TOPICAL CREAM 113 GM JAR TP SCH (09:34)
[2020-01-06 15:32] LABS: EPI CELLS 2 /uL (0-25.1); HYALINE CASTS 1 /uL (0-3.1); PH,URINE 5.5 (5.0-8.0); URINE APPEARANCE CLEAR; URINE BACTERIA 1 /uL (0-1359); URINE BILIRUBIN NEGATIVE (NEGATIVE); URINE COLOR YELLOW; URINE GLUCOSE (UA) NEGATIVE (NEGATIVE); URINE KETONE NEGATIVE (NEGATIVE); URINE LEUK ESTERASE TRACE (NEGATIVE); URINE NITRITE NEGATIVE (NEGATIVE); URINE PROTEIN NEGATIVE (NEGATIVE); URINE RBC 5 /uL (0-23.9); URINE UROBILINOGEN 0.2 mg/dL (0.2-1.0); URINE WBC 8 /uL (0-25.8)
[2020-01-06] MEDS: THIAMINE HCL 100 MG TABLET (FP) PO SCH (21:00)
[2020-01-06] MEDS: QUEtiapine FUMARATE 50 MG TABLET PO SCH (21:00)
[2020-01-06] MEDS: MELATONIN 5 MG TABLETS PO SCH ×2 (21:01→21:58)
[2020-01-07] MEDS: PRENATAL VITAMINS W/ FOLIC ACID TABLET (FP) PO SCH (09:56)
[2020-01-07] MEDS: MINERAL OIL/PETROLAT/WATER TOPICAL CREAM 113 GM JAR TP SCH (09:56)
[2020-01-07] MEDS: MELATONIN 5 MG TABLETS PO SCH (21:47)
[2020-01-07] MEDS: THIAMINE HCL 100 MG TABLET (FP) PO SCH (21:47)
[2020-01-07] MEDS: QUEtiapine FUMARATE 50 MG TABLET PO SCH (21:48)
[2020-01-08] MEDS: PRENATAL VITAMINS W/ FOLIC ACID TABLET (FP) PO SCH (09:34)
[2020-01-08] MEDS: MINERAL OIL/PETROLAT/WATER TOPICAL CREAM 113 GM JAR TP SCH (09:35)
[2020-01-08] MEDS: MELATONIN 5 MG TABLETS PO SCH (21:10)
[2020-01-08] MEDS: QUEtiapine FUMARATE 50 MG TABLET PO SCH (21:10)
[2020-01-08] MEDS: THIAMINE HCL 100 MG TABLET (FP) PO SCH (21:10)
[2020-01-09] MEDS: hydrOXYzine PAMOATE 25 MG CAPSULE (FP) PO PRN ×2 (09:36→21:40)
[2020-01-09] MEDS: MINERAL OIL/PETROLAT/WATER TOPICAL CREAM 113 GM JAR TP SCH (09:36)
[2020-01-09] MEDS: PRENATAL VITAMINS W/ FOLIC ACID TABLET (FP) PO SCH (09:36)
[2020-01-09] MEDS: MELATONIN 5 MG TABLETS PO SCH (21:40)
[2020-01-09] MEDS: QUEtiapine FUMARATE 50 MG TABLET PO SCH (21:40)
[2020-01-09] MEDS: THIAMINE HCL 100 MG TABLET (FP) PO SCH (21:40)
[2020-01-10] MEDS: MINERAL OIL/PETROLAT/WATER TOPICAL CREAM 113 GM JAR TP SCH (09:43)
[2020-01-10] MEDS: PRENATAL VITAMINS W/ FOLIC ACID TABLET (FP) PO SCH (09:43)
[2020-01-10] MEDS: THIAMINE HCL 100 MG TABLET (FP) PO SCH (21:10)
[2020-01-10] MEDS: QUEtiapine FUMARATE 50 MG TABLET PO SCH (21:10)
[2020-01-10] MEDS: MELATONIN 5 MG TABLETS PO SCH (21:10)
[2020-01-10] MEDS: hydrOXYzine PAMOATE 25 MG CAPSULE (FP) PO PRN (22:16)
[2020-01-11] MEDS: PRENATAL VITAMINS W/ FOLIC ACID TABLET (FP) PO SCH (09:30)
[2020-01-11] MEDS: MINERAL OIL/PETROLAT/WATER TOPICAL CREAM 113 GM JAR TP SCH (09:31)
[2020-01-11] MEDS ORDERED: PENICILLIN G BENZATHINE 2,400,000 UNIT/4 ML PFS IM ONE ×2 (13:05→13:30)
[2020-01-11] MEDS: THIAMINE HCL 100 MG TABLET (FP) PO SCH (21:58)
[2020-01-11] MEDS: QUEtiapine FUMARATE 50 MG TABLET PO SCH (21:59)
[2020-01-11] MEDS: MELATONIN 5 MG TABLETS PO SCH (21:59)
[2020-01-12] MEDS: MINERAL OIL/PETROLAT/WATER TOPICAL CREAM 113 GM JAR TP SCH (09:26)
[2020-01-12] MEDS: PRENATAL VITAMINS W/ FOLIC ACID TABLET (FP) PO SCH (09:26)
[2020-01-12] MEDS: MELATONIN 5 MG TABLETS PO SCH (21:05)
[2020-01-12] MEDS: QUEtiapine FUMARATE 50 MG TABLET PO SCH (21:05)
[2020-01-12] MEDS: THIAMINE HCL 100 MG TABLET (FP) PO SCH (21:06)
[2020-01-12] MEDS: COLLOIDAL OATMEAL 1 BAR EACH TP PRN (21:07)
[2020-01-13] MEDS: PRENATAL VITAMINS W/ FOLIC ACID TABLET (FP) PO SCH (09:36)
[2020-01-13] MEDS: MINERAL OIL/PETROLAT/WATER TOPICAL CREAM 113 GM JAR TP SCH (09:37)
[2020-01-13] MEDS: MELATONIN 5 MG TABLETS PO SCH (22:11)
[2020-01-13] MEDS: hydrOXYzine PAMOATE 25 MG CAPSULE (FP) PO PRN (22:11)
[2020-01-13] MEDS: QUEtiapine FUMARATE 50 MG TABLET PO SCH (22:11)
[2020-01-13] MEDS: THIAMINE HCL 100 MG TABLET (FP) PO SCH (22:11)
[2020-01-14] MEDS: MINERAL OIL/PETROLAT/WATER TOPICAL CREAM 113 GM JAR TP SCH (09:45)
[2020-01-14] MEDS: PRENATAL VITAMINS W/ FOLIC ACID TABLET (FP) PO SCH (09:45)
[2020-01-14] MEDS: TOLNAFTATE 1% CREAM 15 GM TUBE TP SCH ×2 (14:19→21:26)
[2020-01-14] MEDS: MELATONIN 5 MG TABLETS PO SCH (21:09)
[2020-01-14] MEDS: THIAMINE HCL 100 MG TABLET (FP) PO SCH (21:09)
[2020-01-14] MEDS: QUEtiapine FUMARATE 50 MG TABLET PO SCH (21:09)
[2020-01-15] MEDS: MINERAL OIL/PETROLAT/WATER TOPICAL CREAM 113 GM JAR TP SCH (09:23)
[2020-01-15] MEDS: PRENATAL VITAMINS W/ FOLIC ACID TABLET (FP) PO SCH (09:23)
[2020-01-15] MEDS: TOLNAFTATE 1% CREAM 15 GM TUBE TP SCH ×2 (09:23→21:55)
[2020-01-15] MEDS: THIAMINE HCL 100 MG TABLET (FP) PO SCH (21:55)
[2020-01-15] MEDS: QUEtiapine FUMARATE 50 MG TABLET PO SCH (21:55)
[2020-01-15] MEDS: MELATONIN 5 MG TABLETS PO SCH (21:56)
[2020-01-16] MEDS: PRENATAL VITAMINS W/ FOLIC ACID TABLET (FP) PO SCH (09:26)
[2020-01-16] MEDS: TOLNAFTATE 1% CREAM 15 GM TUBE TP SCH ×2 (09:27→21:08)
[2020-01-16] MEDS: MINERAL OIL/PETROLAT/WATER TOPICAL CREAM 113 GM JAR TP SCH (09:28)
[2020-01-16] MEDS: MELATONIN 5 MG TABLETS PO SCH (21:08)
[2020-01-16] MEDS: QUEtiapine FUMARATE 50 MG TABLET PO SCH (21:08)
[2020-01-16] MEDS: THIAMINE HCL 100 MG TABLET (FP) PO SCH (21:08)
[2020-01-16] MEDS: hydrOXYzine PAMOATE 25 MG CAPSULE (FP) PO PRN (21:08)
[2020-01-17] MEDS: PRENATAL VITAMINS W/ FOLIC ACID TABLET (FP) PO SCH (09:34)
[2020-01-17] MEDS: MINERAL OIL/PETROLAT/WATER TOPICAL CREAM 113 GM JAR TP SCH (09:35)
[2020-01-17] MEDS: TOLNAFTATE 1% CREAM 15 GM TUBE TP SCH ×2 (09:35→22:12)
[2020-01-17] MEDS: COLLOIDAL OATMEAL 1 BAR EACH TP PRN (09:35)
[2020-01-17] MEDS: THIAMINE HCL 100 MG TABLET (FP) PO SCH (22:11)
[2020-01-17] MEDS: hydrOXYzine PAMOATE 25 MG CAPSULE (FP) PO PRN (22:11)
[2020-01-17] MEDS: QUEtiapine FUMARATE 50 MG TABLET PO SCH (22:11)
[2020-01-17] MEDS: MELATONIN 5 MG TABLETS PO SCH (22:12)
[2020-01-18] MEDS: TOLNAFTATE 1% CREAM 15 GM TUBE TP SCH ×2 (09:25→22:16)
[2020-01-18] MEDS: MINERAL OIL/PETROLAT/WATER TOPICAL CREAM 113 GM JAR TP SCH (09:25)
[2020-01-18] MEDS: PRENATAL VITAMINS W/ FOLIC ACID TABLET (FP) PO SCH (09:25)
[2020-01-18] MEDS ORDERED: PENICILLIN G BENZATHINE 2,400,000 UNIT/4 ML PFS IM ONE (10:00)
[2020-01-18] MEDS: ACETAMINOPHEN 325 MG TABLET (FP) PO PRN (18:48)
[2020-01-18] MEDS: hydrOXYzine PAMOATE 25 MG CAPSULE (FP) PO PRN (22:16)
[2020-01-18] MEDS: THIAMINE HCL 100 MG TABLET (FP) PO SCH (22:16)
[2020-01-18] MEDS: QUEtiapine FUMARATE 50 MG TABLET PO SCH (22:16)
[2020-01-18] MEDS: MELATONIN 5 MG TABLETS PO SCH (22:16)
[2020-01-19] MEDS: PRENATAL VITAMINS W/ FOLIC ACID TABLET (FP) PO SCH (09:55)
[2020-01-19] MEDS: MINERAL OIL/PETROLAT/WATER TOPICAL CREAM 113 GM JAR TP SCH (09:55)
[2020-01-19] MEDS: TOLNAFTATE 1% CREAM 15 GM TUBE TP SCH ×2 (09:55→21:58)
[2020-01-19] MEDS: hydrOXYzine PAMOATE 25 MG CAPSULE (FP) PO PRN (21:58)
[2020-01-19] MEDS: MELATONIN 5 MG TABLETS PO SCH (21:58)
[2020-01-19] MEDS: QUEtiapine FUMARATE 50 MG TABLET PO SCH (21:58)
[2020-01-19] MEDS: THIAMINE HCL 100 MG TABLET (FP) PO SCH (21:58)
[2020-01-20] MEDS: PRENATAL VITAMINS W/ FOLIC ACID TABLET (FP) PO SCH (09:33)
[2020-01-20] MEDS: TOLNAFTATE 1% CREAM 15 GM TUBE TP SCH ×2 (09:34→22:08)
[2020-01-20] MEDS: MINERAL OIL/PETROLAT/WATER TOPICAL CREAM 113 GM JAR TP SCH (09:34)
[2020-01-20] MEDS: QUEtiapine FUMARATE 50 MG TABLET PO SCH (21:31)
[2020-01-20] MEDS: hydrOXYzine PAMOATE 25 MG CAPSULE (FP) PO PRN (21:31)
[2020-01-20] MEDS: MELATONIN 5 MG TABLETS PO SCH (21:31)
[2020-01-20] MEDS: THIAMINE HCL 100 MG TABLET (FP) PO SCH (21:32)
[2020-01-21 07:09] VITALS: BP 146/90; PULSE 94; TEMP 98.4
[2020-01-21] MEDS: PRENATAL VITAMINS W/ FOLIC ACID TABLET (FP) PO SCH (09:30)
[2020-01-21] MEDS: MINERAL OIL/PETROLAT/WATER TOPICAL CREAM 113 GM JAR TP SCH (09:30)
[2020-01-21] MEDS: TOLNAFTATE 1% CREAM 15 GM TUBE TP SCH (09:30)
== END 2020-01-21 10:00 | disposition home or self-care (01) | DRG 772 ==
LOC: YASAS 21:06 → Y5N 01-02 00:07
PROVIDERS: ADMIT Allergy & Immunology; ATTEND Allergy & Immunology
PROC: HZ42ZZZ Group Counseling for Substance Abuse Treatment, Cognitive-Behavioral (ICD-10-PCS; principal; 2020-01-02)
DX: F15.20 Other stimulant dependence, uncomplicated (principal); F12.20 Cannabis dependence, uncomplicated; F19.282 Other psychoactive substance dependence with psychoactive substance-induced sleep disorder; B35.3 Tinea pedis; A53.9 Syphilis, unspecified; Z87.891 Personal history of nicotine dependence
CPT/HCPCS: 36415; 80053; 81003; 85027; 86593; 86780; C9803; U0003